=== PATIENT | female | born 1975 | race Two or more races ===

== ENCOUNTER 2024-03-02 04:15 | Inpatient (IN) | payer BC, OTHER ==
[~2024-03-02] VITALS: Ht 162.6 cm; Wt 85.0 kg
[2024-03-02 04:43] LABS: Basophils # (auto) 0.1 10 ^3/uL (0-0.2); Basophils % (auto) 0.4 % (0.0-2.0); Eosinophils # (auto) 0 10 ^3/uL (0-0.8); Eosinophils % (auto) 0.1 % (0.0-7.0); Hematocrit 41.5 % (36.0-46.0); Hemoglobin 14.2 g/dL (12.2-16.2); Lymphocytes % (auto) 11.1 % (10.0-50.0); Mean Corpuscular Hemoglobin 30.2 pg (28.0-32.0); Mean Corpuscular Hgb Conc. 34.3 g/dL (32.0-36.0); Monocytes # (auto) 0.7 10 ^3/uL (0-1.3); Monocytes % (auto) 3.9 % (0.0-12.0); Neutrophils # (auto) 14.9 10 ^3/uL (1.6-8.6); Neutrophils % (auto) 84.5 % (37.0-80.0); Platelet Count (auto) 240 10^3/uL (140-450); Red Blood Cells 4.71 10^6/uL (4.0-5.20); Red Cell Distribution Width 13.7 % (11.8-14.3); White Blood Cell 17.7 10^3/uL (4.4-10.8)
[2024-03-02 05:09] LABS: Alanine Aminotransferase 21 U/L (7-40); Albumin 4.9 g/dL (3.2-4.8); Alkaline Phosphatase 67 U/L (46-116); Anion Gap 12 (5-15); Aspartate Aminotransferase 14 U/L (13-40); BUN/Creatinine Ratio 13.4 (10.0-20.0); Bilirubin, Total 0.3 mg/dL (0.2-1.0); Blood Urea Nitrogen 11 mg/dL (9-23); Calcium 9.9 mg/dL (8.7-10.4); Carbon Dioxide 20 mmol/L (20-31); Chloride 106 mmol/L (98-107); Glucose 126 mg/dL (74-106); Potassium 3.4 mmol/L (3.5-5.1); Sodium 138 mmol/L (136-145); Total Protein 7.7 g/dL (5.7-8.2)
[2024-03-02 07:35] VITALS: PULSE 66; RESP 16; O2SAT 96
[2024-03-02] MEDS: METOCLOPRAMIDE HCL 5MG/ml INJ 2ml VIAL IV ONE ×2 (08:17→13:58)
[2024-03-02] MEDS: SODIUM CHLORIDE 0.9% 500 ML IVB ONE (08:17)
[2024-03-02] MEDS: HYDROmorphone HCL 2 MG/ML VL/or syr IV ONE ×2 (08:18→13:59)
[2024-03-02 08:35] LABS: Urine Bacteria FEW /hpf (None Seen); Urine Blood Negative /uL (Negative); Urine Clarity Clear (Clear); Urine Color Yellow (Yellow); Urine Mucus FEW (None Seen); Urine Protein, UAD TRACE (Negative); Urine Urobilinogen Normal (Negative); Urine WBC 1 /hpf (0 - 5)
[2024-03-02] MEDS: IOHEXOL 300 MG/ML 100ML BOTTLE IJ ONE (08:55)
[2024-03-02] MEDS: SODIUM CHLORIDE 0.9% 1,000 ML IV ONE (09:03)
[2024-03-02 09:09] LABS: Magnesium 1.9 mg/dL (1.6-2.6)
[2024-03-02] MEDS ORDERED: DICL50TA2 PO (13:37)
[2024-03-02] MEDS ORDERED: CEFD300C2 PO (13:37)
[2024-03-02] MEDS: POTASSIUM EFFERVESENT TAB 25 MEQ PO ONE (13:58)
[2024-03-02] MEDS: cefTRIAXone 1GM/50ML D5W 50 ML IV ONE (15:42)
[2024-03-02] MEDS ORDERED: ONDANSETRON HCL 4 MG/2 ML VIAL IV PRN (16:30)
[2024-03-02] MEDS ORDERED: MORPHINE SULFATE INJ 2 MG/ml SYRG IV PRN (16:30)
[2024-03-02] MEDS: SODIUM CHLORIDE 0.9% 1,000 ML IV SCH (17:37)
[2024-03-02 17:48] VITALS: BP 127/80; PULSE 75; RESP 20; O2SAT 100
[2024-03-02 17:54] LABS: INR 1.03 (0.9-1.15); Prothrombin Time 10.9 sec (9.3-11.8)
[2024-03-02] MEDS: ONDANSETRON HCL 4 MG/2 ML VIAL IV PRN (19:40)
[2024-03-02] MEDS: HYDROmorphone HCL 2 MG/ML VL/or syr IV PRN (19:41)
[2024-03-02 20:00] VITALS: RESP 16
[2024-03-02 21:00] VITALS: BP 109/60; PULSE 91; RESP 18; TEMP 98.8; O2SAT 100
[2024-03-02] MEDS: ceFAZolin 1GM/50ML 50 ML IV SCH (21:14)
[2024-03-03] VITALS (8 sets, daily range): BP systolic 119–129; BP diastolic 75–84; PULSE 74–87; RESP 16–20; TEMP 97.1–99.2; O2SAT 94–100
[2024-03-03 07:41] LABS: Basophils # (auto) 0.1 10 ^3/uL (0-0.2); Basophils % (auto) 0.5 % (0.0-2.0); Eosinophils # (auto) 0 10 ^3/uL (0-0.8); Eosinophils % (auto) 0.3 % (0.0-7.0); Hematocrit 39.1 % (36.0-46.0); Hemoglobin 13.1 g/dL (12.2-16.2); Lymphocytes # (auto) 2.8 10 ^3/uL (0.4-5.4); Lymphocytes % (auto) 16.5 % (10.0-50.0); Mean Corpuscular Hemoglobin 29.6 pg (28.0-32.0); Mean Corpuscular Hgb Conc. 33.5 g/dL (32.0-36.0); Mean Corpuscular Volume 88.4 fL (80.0-100.0); Monocytes # (auto) 1.2 10 ^3/uL (0-1.3); Neutrophils # (auto) 12.8 10 ^3/uL (1.6-8.6); Neutrophils % (auto) 75.7 % (37.0-80.0); Platelet Count (auto) 275 10^3/uL (140-450); Red Blood Cells 4.42 10^6/uL (4.0-5.20); Red Cell Distribution Width 13.5 % (11.8-14.3); White Blood Cell 16.9 10^3/uL (4.4-10.8)
[2024-03-03 07:46] LABS: Chloride 109 mmol/L (98-107); Potassium 3.5 mmol/L (3.5-5.1); Sodium 140 mmol/L (136-145)
[2024-03-03 07:47] LABS: Anion Gap 9 (5-15); Calcium 8.9 mg/dL (8.7-10.4); Carbon Dioxide 22 mmol/L (20-31)
[2024-03-03 07:52] LABS: Glucose 106 mg/dL (74-106)
[2024-03-03 07:56] LABS: BUN/Creatinine Ratio 6.4 (10.0-20.0); Blood Urea Nitrogen < 5 mg/dL (9-23)
[2024-03-03] MEDS ORDERED: fentaNYL CITRATE 100 MCG/2 ML VL ONE (11:57)
[2024-03-03] MEDS ORDERED: MEPERIDINE HCL (50 MG/ML) 1 ML VIAL ONE (11:58)
[2024-03-03] MEDS ORDERED: SUCCINYLCHOLINE CHLORIDE 20 MG/ML 10ML VIAL IV ONE (12:02)
[2024-03-03] MEDS: ceFAZolin 2 GM/D5W100ml 100 ML IV ONE (12:11)
[2024-03-03] MEDS ORDERED: ROCURONIUM 10MG/ML 10ML VIAL IV ONE (12:23)
[2024-03-03] MEDS ORDERED: PROPOFOL 10 MG/ML 20 ML IV ONE (12:23)
[2024-03-03] MEDS ORDERED: DexAMETHasone SOD PHOS 10MG/1ML VIAL INJ ONE (12:35)
[2024-03-03] MEDS ORDERED: ONDANSETRON HCL 4 MG/2 ML VIAL ONE (12:35)
[2024-03-03] MEDS ORDERED: PHENYLEPHRINE HCL 10 MG/ML VL ONE (12:56)
[2024-03-03] MEDS ORDERED: SUGAMMADEX 200mg/2ml Vial (100MG/ML) IV ONE (12:56)
[2024-03-03] MEDS ORDERED: ACETAMINOPHEN/CODEINE#3 (300/30mg) TAB PO PRN (13:15)
[2024-03-03] MEDS ORDERED: ACETAMINOPHEN IV 1000 MG/100ML (10MG/ML) IV PRN (13:15)
[2024-03-03] MEDS ORDERED: SOD CHL 0.45% WITH 20MEQ KCL 1,000 ML IV SCH (13:15)
[2024-03-03] MEDS ORDERED: ONDANSETRON HCL 4 MG/2 ML VIAL IV ONE (13:15)
[2024-03-03] MEDS ORDERED: ONDANSETRON HCL 4 MG/2 ML VIAL IV PRN (13:15)
[2024-03-03] MEDS ORDERED: HYDROmorphone HCL 2 MG/ML VL/or syr IV PRN ×2 (13:15)
[2024-03-03] MEDS ORDERED: MEPERIDINE HCL (25 MG/ML) 1ML VIAL IV PRN (13:15)
[2024-03-03] MEDS: PIPERACILLIN-TAZOB 3.375GM 100 ML IV SCH (15:13)
[2024-03-03] MEDS: SOD CHL 0.45% WITH 20MEQ KCL 1,000 ML IV SCH (18:19)
[2024-03-04] VITALS (7 sets, daily range): BP systolic 100–127; BP diastolic 65–81; PULSE 60–89; RESP 15–20; TEMP 98–99.2; O2SAT 95–100
[2024-03-04] MEDS: KETOROLAC TROMETH 30 MG/ML 1ML VIAL IV PRN (05:23)
[2024-03-04 06:04] LABS: Basophils # (auto) 0 10 ^3/uL (0-0.2); Basophils % (auto) 0.2 % (0.0-2.0); Eosinophils # (auto) 0 10 ^3/uL (0-0.8); Hematocrit 38.9 % (36.0-46.0); Hemoglobin 13.2 g/dL (12.2-16.2); Lymphocytes # (auto) 0.9 10 ^3/uL (0.4-5.4); Mean Corpuscular Hemoglobin 30.1 pg (28.0-32.0); Mean Corpuscular Volume 88.7 fL (80.0-100.0); Monocytes # (auto) 0.8 10 ^3/uL (0-1.3); Neutrophils # (auto) 13.9 10 ^3/uL (1.6-8.6); Neutrophils % (auto) 88.8 % (37.0-80.0); Platelet Count (auto) 268 10^3/uL (140-450); Red Blood Cells 4.39 10^6/uL (4.0-5.20); Red Cell Distribution Width 13.5 % (11.8-14.3); White Blood Cell 15.7 10^3/uL (4.4-10.8)
[2024-03-04] MEDS: PANTOPRAZOLE 40 MG/10 ML VIAL INJ IV SCH (09:53)
[2024-03-05 01:00] VITALS: BP 118/78; PULSE 71; RESP 18; TEMP 99.1; O2SAT 99
[2024-03-05 05:00] VITALS: BP 103/66; PULSE 80; RESP 17; TEMP 98.9; O2SAT 95
[2024-03-05 06:12] LABS: Basophils # (auto) 0 10 ^3/uL (0-0.2); Basophils % (auto) 0.3 % (0.0-2.0); Eosinophils # (auto) 0.1 10 ^3/uL (0-0.8); Eosinophils % (auto) 0.8 % (0.0-7.0); Hematocrit 34.2 % (36.0-46.0); Hemoglobin 11.3 g/dL (12.2-16.2); Lymphocytes # (auto) 3.8 10 ^3/uL (0.4-5.4); Lymphocytes % (auto) 28.9 % (10.0-50.0); Mean Corpuscular Hemoglobin 29.6 pg (28.0-32.0); Mean Corpuscular Hgb Conc. 33.1 g/dL (32.0-36.0); Mean Corpuscular Volume 89.3 fL (80.0-100.0); Monocytes # (auto) 0.8 10 ^3/uL (0-1.3); Monocytes % (auto) 6.3 % (0.0-12.0); Neutrophils # (auto) 8.4 10 ^3/uL (1.6-8.6); Neutrophils % (auto) 63.7 % (37.0-80.0); Nucleated Red Blood Cells % 0.1 %; Platelet Count (auto) 255 10^3/uL (140-450); Red Blood Cells 3.83 10^6/uL (4.0-5.20); Red Cell Distribution Width 13.6 % (11.8-14.3); White Blood Cell 13.2 10^3/uL (4.4-10.8)
[2024-03-05 06:41] LABS: Alanine Aminotransferase 34 U/L (7-40); Alkaline Phosphatase 54 U/L (46-116); Anion Gap 9 (5-15); Calcium 9.2 mg/dL (8.7-10.4); Carbon Dioxide 22 mmol/L (20-31); Chloride 110 mmol/L (98-107); Glucose 83 mg/dL (74-106); Potassium 3.3 mmol/L (3.5-5.1); Sodium 141 mmol/L (136-145)
[2024-03-05 06:42] LABS: Albumin 3.8 g/dL (3.2-4.8); Aspartate Aminotransferase 21 U/L (13-40); Bilirubin, Total 0.5 mg/dL (0.2-1.0)
[2024-03-05 06:44] LABS: BUN/Creatinine Ratio 6.8 (10.0-20.0); Blood Urea Nitrogen < 5 mg/dL (9-23)
[2024-03-05] MEDS ORDERED: POTASSIUM CHL 20MEQ/100ML 100 ML IV SCH (07:15)
[2024-03-05 08:10] VITALS: PULSE 84; RESP 18; O2SAT 95
[2024-03-05 09:00] VITALS: BP 112/71; PULSE 84; RESP 18; TEMP 98.2; O2SAT 95
[2024-03-05] MEDS ORDERED: POTASSIUM CHL 20 Meq TABLET PO SCH (10:00)
[2024-03-05 11:20] VITALS: BP 112/71; PULSE 84; RESP 18; TEMP 98.2; O2SAT 95
[2024-03-05] MEDS ORDERED: METR-344 PO (12:11)
[2024-03-05] MEDS ORDERED: LEVO750T40 PO (12:11)
== END 2024-03-05 12:40 | disposition home or self-care (01) | DRG 419 ==
LOC: ER 04:15 → OVERFLOW 16:40 → WEST WING 17:48
PROVIDERS: ADMIT Internal Medicine; ATTEND Internal Medicine
PROC: 0FT44ZZ Resection of Gallbladder, Percutaneous Endoscopic Approach (ICD-10-PCS; principal; 2024-03-03 12:11)
DX: K80.00 Calculus of gallbladder with acute cholecystitis without obstruction (principal); N83.202 Unspecified ovarian cyst, left side; K52.89 Other specified noninfective gastroenteritis and colitis; Z78.0 Asymptomatic menopausal state
CPT/HCPCS: 36415; 71045; 74177; 76705; 76856; 80048; 80053; 81001; 82247; 83690; 83735; 84484; 84702; 85025; 85610; 86850; 86900; 86901; 87070; 87075; 87205; 93005; 96365; 96375; G0378; J0131; J0330; J1100; J1885; J2405; J2470; J2543; J2704